=== PATIENT | female | born 1965 | race Caucasian/White ===

== ENCOUNTER 2017-05-22 00:34 | Day surgery (SDC) | payer OTHER | END 2017-05-22 22:48 | disposition home or self-care (01) | LOC: WOUND 00:34 | DX: Z48.00 Encounter for change or removal of nonsurgical wound dressing (principal); L98.492 Non-pressure chronic ulcer of skin of other sites with fat layer exposed; M66.241 Spontaneous rupture of extensor tendons, right hand | CPT/HCPCS: G0463 ==

== ENCOUNTER 2017-05-29 11:00 | Day surgery (SDC) | payer OTHER | END 2017-05-29 23:15 | disposition home or self-care (01) | LOC: WOUND 11:00 | DX: Z48.00 Encounter for change or removal of nonsurgical wound dressing (principal); L98.492 Non-pressure chronic ulcer of skin of other sites with fat layer exposed; M66.241 Spontaneous rupture of extensor tendons, right hand | CPT/HCPCS: G0463 ==

== ENCOUNTER 2017-06-12 13:20 | Day surgery (SDC) | payer OTHER | END 2017-06-12 16:11 | disposition home or self-care (01) | LOC: WOUND 13:20 | PROC: 0HBFXZZ Excision of Right Hand Skin, External Approach (ICD-10-PCS; principal; 2017-06-12) | DX: Z48.00 Encounter for change or removal of nonsurgical wound dressing (principal); L98.492 Non-pressure chronic ulcer of skin of other sites with fat layer exposed; M66.241 Spontaneous rupture of extensor tendons, right hand; F17.210 Nicotine dependence, cigarettes, uncomplicated | CPT/HCPCS: G0463 ==

== ENCOUNTER → 2017-12-09 | Outpatient (CLI) | payer OTHER ==
[~2017-12-09] MED LIST: Robaxin-750750 MG PO; Ultram50 MG PO
== END | disposition home or self-care (01) ==
LOC: LAB SHORT 08:19 → PLD 08:19
DX: B35.1 Tinea unguium (principal); L60.2 Onychogryphosis
CPT/HCPCS: 88305; 88312

== ENCOUNTER 2018-02-05 16:33 | Emergency (ER) | payer OTHER ==
[~2018-02-05] VITALS: Ht 170.2 cm; Wt 63.5 kg
[2018-02-05] MEDS ORDERED: Ultram50 MG PO (18:24)
[2018-02-05] MEDS ORDERED: Robaxin-750750 MG PO (18:24)
== END 2018-02-05 18:45 | disposition home or self-care (01) ==
LOC: ER 16:33
DX: G44.209 Tension-type headache, unspecified, not intractable (principal); H53.8 Other visual disturbances
CPT/HCPCS: 70450; 99283-25

== ENCOUNTER → 2019-07-07 | Outpatient (CLI) | payer OTHER ==
[2019-07-09 15:07] LABS: HPV 16 Negative (Negative); HPV 18 Negative (Negative); HPV OTHER HR TYPES Negative (Negative)
== END ==
LOC: LAB SHORT 17:21 → LAB 17:21
PROVIDERS: Registered Nurse Community Health
DX: Z01.419 Encounter for gynecological examination (general) (routine) without abnormal findings (principal)
CPT/HCPCS: 87624; G0123

== ENCOUNTER 2020-02-03 03:21 | Emergency (ER) | payer OTHER ==
[~2020-02-03] VITALS: Ht 170.2 cm; Wt 68.0 kg
== END 2020-02-03 05:12 | disposition home or self-care (01) ==
LOC: ER 03:21
DX: M25.532 Pain in left wrist (principal); F17.210 Nicotine dependence, cigarettes, uncomplicated; W01.0XXA Fall on same level from slipping, tripping and stumbling without subsequent striking against object, initial encounter
CPT/HCPCS: 29125; 73110; 73130; 96372-59; 99283-25; J1885

== ENCOUNTER 2022-06-08 11:40 | Emergency (ER) | payer OTHER ==
[~2022-06-08] VITALS: Ht 170.2 cm; Wt 71.2 kg
[~2022-06-08 11:40] MED LIST changes: +Percocet 5-3251 EACH PO
[2022-06-08] MEDS ORDERED: HYDACE10B PO (13:32)
[2022-06-08] MEDS ORDERED: Percocet 5-3251 EACH PO (13:47)
== END 2022-06-08 14:10 | disposition home or self-care (01) ==
LOC: ER 11:40
DX: S52.572A Other intraarticular fracture of lower end of left radius, initial encounter for closed fracture (principal); W54.1XXA Struck by dog, initial encounter; F17.210 Nicotine dependence, cigarettes, uncomplicated
CPT/HCPCS: 73030; 73110; 73562-LT; A9270; J1885; J2270

== ENCOUNTER 2022-06-14 08:08 | Day surgery (SDC) | payer OTHER ==
[~2022-06-14] VITALS: Ht 170.2 cm; Wt 69.2 kg
[~2022-06-14 08:08] MED LIST changes: +HYDACE10B PO
--- NOTE | 2022-06-14 10:28 | NUR ---
06/14/22 1028 NONA ANGUIANO 0.15MG OF EPI ADDED TO 30MLS OF ROPIVACAINE 0.5% TO CREATE A LOCAL SOLUTION OF ROPIVACAINE 0.5% WITH EPI 1:200,000. LOCAL POURED ONTO FIELD FOR USE DURING CASE.
--- NOTE | 2022-06-14 13:07 | NUR ---
06/14/22 1307 Saulo Hall PT ARRIVED IN PACU WITH IV NOT USEABLE. SHE WAS GIVEN 5MG PO OXYCODONE FOR PAIN AT 1240, PER DR. RUTHERFORD' ORDERS. PT REPORTED 9/10 PAIN PRIOR TO DISCHARGE, BUT SAID SHE FELT COMFORTABLE RETURNING HOME WITH THIS LEVEL OF PAIN. SHE STATED THAT SHE WOULD RATHER RETURN HOME THAN WAIT 30 MINUTES FOR ANOTHER DOSE OF ORAL PAIN MEDICATION. UPON DISCHARGE, PT VERBALIZED THAT HER PAIN WAS TOLERABLE AND SHE WAS SATISFIED WITH HER CARE.
== END 2022-06-14 13:04 | disposition home or self-care (01) ==
LOC: ORSCSDS 08:08
PROVIDERS: Orthopaedic Surgery
PROC: 0PSJ04Z Reposition Left Radius with Internal Fixation Device, Open Approach (ICD-10-PCS; principal; 2022-06-14 09:45)
DX: S52.572A Other intraarticular fracture of lower end of left radius, initial encounter for closed fracture (principal); W01.0XXA Fall on same level from slipping, tripping and stumbling without subsequent striking against object, initial encounter; F17.210 Nicotine dependence, cigarettes, uncomplicated
CPT/HCPCS: A9270; C1713; J0171; J0690; J1100; J1170; J1885; J2250; J2405; J2704; J2765; J2795; J3010

== ENCOUNTER → 2023-11-05 | Outpatient (CLI) | payer OTHER ==
[2023-11-05 19:33] LABS: BASOPHILS ABSOLUTE AUTO 0.05 K/mm3 (0.00-0.23); BASOPHILS PERCENT AUTO 1 % (0-2); EOSINOPHILS ABSOLUTE AUTO 0.38 K/mm3 (0.00-0.68); EOSINOPHILS PERCENT AUTO 5 % (0-6); Hematocrit 41.5 % (33.0-51.0); Hemoglobin 14.1 g/dL (11.5-16.0); IMMATURE GRAN ABSOLUTE AUTO 0.03 K/mm3 (0.00-0.10); IMMATURE GRAN PERCENT AUTO 0 % (0-1); LYMPHOCYTES ABSOLUTE AUTO 1.61 K/mm3 (0.84-5.20); LYMPHOCYTES PERCENT AUTO 21 % (21-46); MONOCYTES ABSOLUTE AUTO 0.55 K/mm3 (0.16-1.47); MONOCYTES PERCENT AUTO 7 % (4-13); Mean Corpuscular HGB 29.2 pg (26.0-34.0); Mean Corpuscular Volume 86 fL (80-100); Mean Platelet Volume 10.1 fL (9.1-12.4); NEUTROPHILS PERCENT AUTO 66 % (41-73); Platelet Count 274 K/mm3 (150-400); RDW Coefficient Variation 13.5 % (11.7-14.2); RDW Standard Deviation 42.1 fL (35.1-46.3); Red Blood Cell Count 4.83 M/mm3 (3.80-5.20); White Blood Cell Count 7.62 K/mm3 (4.00-11.30)
[2023-11-05 19:47] LABS: Iron Serum 80 ug/dL (50-170); Very Low Density Lipoprot Chol 17 mg/dL (6-32)
[2023-11-05 19:49] LABS: Alanine Aminotransfer (ALT/SGP 27 U/L (12-78); Albumin, Blood 4.2 g/dL (3.4-5.0); Alk Phos 98 U/L (50-136); Anion Gap 10 mmol/L (3-11); Aspartate Aminotrans (AST/SGOT 18 U/L (12-37); Bilirubin, Total 0.8 mg/dL (0.1-1.0); Blood Urea Nitrogen 18 mg/dL (8-24); Bun/Creatinine Ratio 24.8 (12.0-20.0); CHOL/HDL RATIO 2.7; CO2, Blood 23 mmol/L (21-32); Calcium, Blood 9.3 mg/dL (8.5-10.1); Chloride, Blood 108 mmol/L (98-108); Cholesterol 190 mg/dL (50-200); Creatinine, Blood 0.73 mg/dL (0.40-1.00); Ferritin, Serum 92 ng/mL (8-252); Globulin, Blood 4.3 g/dL (2.2-4.0); Glomerular Filtration Rate 96 (60-); Glucose, Blood 92 mg/dL (70-99); HDL Cholesterol 71 mg/dL (>39); LDL/HDL RATIO 1.4; Low Density Lipoprotein Chol 102 mg/dL (0-110); Percent Saturation 18.5 % (15.0-50.0); Potassium, Blood 3.7 mmol/L (3.5-5.5); Sodium, Blood 137 mmol/L (136-145); Total Iron Binding Capacity 432 ug/dL (250-450); Total Protein, Blood 8.5 g/dL (6.4-8.2); Triglycerides 86 mg/dL (30-160)
== END ==
LOC: LAB SHORT 18:47 → LAB 18:47
PROVIDERS: Family Medicine
DX: Z00.00 Encounter for general adult medical examination without abnormal findings (principal); Z13.6 Encounter for screening for cardiovascular disorders; Z86.39 Personal history of other endocrine, nutritional and metabolic disease
CPT/HCPCS: 80053; 80061; 82728; 83540; 83550; 85025